=== PATIENT | male | born 1955 | race Caucasian/White ===

== ENCOUNTER 2020-08-20 17:39 | Outpatient (REF) | payer SELFPAY ==
[2020-08-20 18:41] LABS: VALPROIC ACID 74.2 ug/mL (50-100)
== END 2020-08-20 17:59 ==
LOC: LBN 17:39
PROVIDERS: PCP Family Medicine; Visit Provider Family Medicine
DX: G40.89 Other seizures (principal); Z51.81 Encounter for therapeutic drug level monitoring; Z79.899 Other long term (current) drug therapy
CPT/HCPCS: 80164

== ENCOUNTER 2020-08-22 12:01 | Outpatient (REF) | payer SELFPAY ==
[2020-08-22 13:14] LABS: Bilirubin Negative (Negative); Blood Large (Negative); Clarity Sl Cloudy (Clear); Glucose Negative (Negative); Ketones Negative (Negative); Leukocyte Esterase Small (Negative); Nitrite Negative (Negative); Specific Gravity 1.025 (1.005-1.025); Urobilinogen 0.2 EU/dL (Up TO 0.2)
[2020-08-22 13:24] LABS: C & S Indicated? C&S Done As Ordered; RBC >50 HPF (0-2)
== END 2020-08-22 12:21 ==
LOC: NCHCN 12:01
PROVIDERS: PCP Family Medicine; Visit Provider Nurse Practitioner Adult Health
DX: N39.0 Urinary tract infection, site not specified (principal); R31.9 Hematuria, unspecified
CPT/HCPCS: 81003; 81015; 87086

== ENCOUNTER 2020-08-24 17:45 | Outpatient (REF) | payer SELFPAY ==
[2020-08-25 13:48] LABS: COVID-19 RT-PCR Result Not Detected ((See Note))
== END 2020-08-24 18:05 ==
LOC: LBN 17:45
PROVIDERS: PCP Nurse Practitioner Adult Health; Visit Provider Nurse Practitioner Adult Health
DX: Z11.59 Encounter for screening for other viral diseases (principal)
CPT/HCPCS: U0003

== ENCOUNTER 2020-08-25 17:11 | Outpatient (REF) | payer SELFPAY ==
[2020-08-25 17:20] LABS: Abs Immature Grans 0.02 10^3/uL (0.0-0.06); Absolute Basophil Count 0.06 10^3/uL (0.0-0.2); Absolute Eosinophil Count 0.21 10^3/uL (0.0-0.7); Absolute Lymphocyte Count 1.44 10^3/uL (1.2-3.4); Absolute Neutrophil Count 3.79 10^3/uL (1.2-6.7); Basophils % 0.9; Eosinophils % 3.3; HCT 35.5 % (40.0-50.0); HGB 11.4 g/dL (13.5-17.5); Immature Grans % 0.3; Lymphocytes % 22.4; MCH 30.2 pg (27.0-33.0); MCHC 32.1 % (32.0-36.0); MCV 94.2 fL (80-95); MPV 11.4 fL (8.0-11.0); Neutrophils % 59.1; Nucleated RBC 0 %; Platelet Count 275 10^3/uL (130-400); RBC 3.77 10^6/uL (4.36-5.78); RDW 13.9 % (11.8-14.1); RDW-SD 47.2 fL; WBC 6.42 10^3/uL (4.4-10.8)
[2020-08-25 17:52] LABS: Anion Gap 2.1 mmol/L (3-11); BUN 27 mg/dL (7-18); CO2 36.9 mmol/L (21.0-32.0); CREATININE 0.57 mg/dL (0.70-1.30); Calcium 8.2 mg/dL (8.5-10.1); Chloride 98 mmol/L (98-107); Glucose 87 mg/dL (74-106); Potassium 4.7 mmol/L (3.5-5.1); Sodium 137 mmol/L (136-145)
== END 2020-08-25 17:31 ==
LOC: LBN 17:11
PROVIDERS: PCP Nurse Practitioner Adult Health; Visit Provider Family Medicine
DX: R31.9 Hematuria, unspecified (principal); E46 Unspecified protein-calorie malnutrition; A41.89 Other specified sepsis
CPT/HCPCS: 80048; 85025

== ENCOUNTER 2020-08-27 14:30 | Outpatient (REF) | payer SELFPAY ==
[2020-08-28 15:30] LABS: COVID-19 RT-PCR Result Not Detected ((See Note))
== END 2020-08-27 14:50 ==
LOC: LBN 14:30
PROVIDERS: PCP Nurse Practitioner Adult Health; Visit Provider Nurse Practitioner Adult Health
DX: Z20.828 Contact with and (suspected) exposure to other viral communicable diseases (principal)
CPT/HCPCS: U0003